=== PATIENT | female | born 1985 | race Caucasian/White ===

== ENCOUNTER 2017-12-02 12:48 | Emergency (ER) | payer OTHER ==
[~2017-12-02] VITALS: Ht 157.5 cm; Wt 56.7 kg
[~2017-12-02 12:48] MED LIST: ALLEGRA30 MG; CARAFATE 1 GM TA1 GM PO; PENICILLIN VK500 M1; PREDNISONE 10 M10 M1 PO; PROAIR HFA8.5 GM PO; ZANTAC 150MG T150 M1 PO; ZPAK PO
[2017-12-02 12:59] VITALS: BP 99/58
[2017-12-02] MEDS ORDERED: OCUFLOX5 ML OTIC (13:21)
[2017-12-02] MEDS ORDERED: KEFLEX500 M1 PO (13:21)
[2017-12-02] MEDS ORDERED: AMOXICILLIN 50500 MG PO (13:28)
== END 2017-12-02 13:30 | disposition home or self-care (01) ==
LOC: M.ERS 12:48
DX: S01.311A Laceration without foreign body of right ear, initial encounter (principal); F32.9 Major depressive disorder, single episode, unspecified; Z88.2 Allergy status to sulfonamides; Z88.8 Allergy status to other drugs, medicaments and biological substances; F17.210 Nicotine dependence, cigarettes, uncomplicated; X58.XXXA Exposure to other specified factors, initial encounter; Y93.89 Activity, other specified; Y92.89 Other specified places as the place of occurrence of the external cause; Y99.8 Other external cause status

== ENCOUNTER 2018-01-19 10:21 | Emergency (ER) | payer OTHER ==
[~2018-01-19] VITALS: Ht 157.5 cm; Wt 54.4 kg
[~2018-01-19 10:21] MED LIST changes: +AMOXICILLIN 50500 MG PO; +KEFLEX500 M1 PO; +OCUFLOX5 ML OTIC
[2018-01-19 10:26] VITALS: BP 109/63
[2018-01-19] MEDS ORDERED: TRAMADOL 50 MG50 MG PO (10:35)
[2018-01-19] MEDS ORDERED: LIDOCAINE VISC100 ML SWISH&SPIT (10:35)
[2018-01-19] MEDS ORDERED: AMOXICILLIN 50500 MG PO (10:35)
== END 2018-01-19 10:48 | disposition home or self-care (01) ==
LOC: M.ERS 10:21
DX: K08.89 Other specified disorders of teeth and supporting structures (principal); F32.9 Major depressive disorder, single episode, unspecified; F17.210 Nicotine dependence, cigarettes, uncomplicated; Z88.2 Allergy status to sulfonamides; Z88.8 Allergy status to other drugs, medicaments and biological substances; Z98.890 Other specified postprocedural states

== ENCOUNTER 2018-06-04 08:22 | Emergency (ER) | payer OTHER, MEDICAID ==
[~2018-06-04] VITALS: Ht 157.5 cm; Wt 56.7 kg
[~2018-06-04 08:22] MED LIST changes: +LIDOCAINE VISC100 ML SWISH&SPIT; +TRAMADOL 50 MG50 MG PO
[2018-06-04] MEDS ORDERED: [UNRECOGNIZED DRUG - OTHER] (08:30)
[2018-06-04] MEDS ORDERED: CLEOCIN HCL150 MG PO ×2 (09:19→09:57)
[2018-06-04 09:22] VITALS: BP 101/67
== END 2018-06-04 09:25 | disposition home or self-care (01) ==
LOC: M.ERS 08:22
DX: K08.89 Other specified disorders of teeth and supporting structures (principal); F17.210 Nicotine dependence, cigarettes, uncomplicated; F32.9 Major depressive disorder, single episode, unspecified; Z88.8 Allergy status to other drugs, medicaments and biological substances; Z88.2 Allergy status to sulfonamides

== ENCOUNTER 2018-06-10 18:44 | Emergency (ER) | payer OTHER, MEDICAID ==
[~2018-06-10] VITALS: Ht 157.5 cm; Wt 56.7 kg
[~2018-06-10 18:44] MED LIST changes: +CLEOCIN HCL150 MG PO; +[UNRECOGNIZED DRUG - OTHER]
[2018-06-10] MEDS ORDERED: MEDROLDOSEPACK PO (19:22)
[2018-06-10] MEDS ORDERED: NORCO 5-325 TA1 EACH PO (19:22)
[2018-06-10] MEDS ORDERED: ROBAXIN 750 MG750 M1 PO (19:22)
[2018-06-10 19:43] VITALS: BP 130/72
== END 2018-06-10 19:44 | disposition home or self-care (01) ==
LOC: M.ERS 18:44
DX: M54.41 Lumbago with sciatica, right side (principal); F32.9 Major depressive disorder, single episode, unspecified; F17.210 Nicotine dependence, cigarettes, uncomplicated; Z88.2 Allergy status to sulfonamides; Z98.890 Other specified postprocedural states; Z88.8 Allergy status to other drugs, medicaments and biological substances

== ENCOUNTER 2018-06-30 10:13 | Emergency (ER) | payer OTHER, MEDICAID ==
[~2018-06-30] VITALS: Ht 157.5 cm; Wt 56.7 kg
[~2018-06-30 10:13] MED LIST changes: +MEDROLDOSEPACK PO; +NORCO 5-325 TA1 EACH PO; +ROBAXIN 750 MG750 M1 PO
[2018-06-30] MEDS ORDERED: IBUPROFEN 600600 M1 PO (10:46)
[2018-06-30] MEDS ORDERED: KEFLEX500 M1 PO (10:46)
[2018-06-30 11:48] VITALS: BP 118/65
== END 2018-06-30 11:48 | disposition home or self-care (01) ==
LOC: M.ERS 10:13
DX: S91.012A Laceration without foreign body, left ankle, initial encounter (principal); W20.8XXA Other cause of strike by thrown, projected or falling object, initial encounter; Y93.89 Activity, other specified; Y92.89 Other specified places as the place of occurrence of the external cause; Y99.8 Other external cause status

== ENCOUNTER 2019-04-08 09:17 | Emergency (ER) | payer MEDICAID ==
[~2019-04-08] VITALS: Ht 157.5 cm; Wt 56.7 kg
[~2019-04-08 09:17] MED LIST changes: +IBUPROFEN 600600 M1 PO
[2019-04-08] MEDS ORDERED: MEDROLDOSEPACK PO (11:38)
[2019-04-08] MEDS ORDERED: NORCO 5-325 TA1 EAC1 PO (11:38)
[2019-04-08] MEDS ORDERED: NAPROSYN500 MG PO (11:38)
[2019-04-08 12:05] VITALS: BP 100/75
== END 2019-04-08 12:05 | disposition home or self-care (01) ==
LOC: M.ERS 09:17
DX: M75.41 Impingement syndrome of right shoulder (principal); M54.2 Cervicalgia; Z88.2 Allergy status to sulfonamides; Z88.8 Allergy status to other drugs, medicaments and biological substances; Z98.51 Tubal ligation status

== ENCOUNTER 2019-07-15 11:44 | Emergency (ER) | payer OTHER, MEDICAID ==
[~2019-07-15] VITALS: Ht 157.5 cm; Wt 56.7 kg
[~2019-07-15 11:44] MED LIST changes: +NAPROSYN500 MG PO; +NORCO 5-325 TA1 EAC1 PO
[2019-07-15] MEDS ORDERED: PREDNISONE10 MG PO (12:30)
[2019-07-15 13:24] VITALS: BP 89/48
== END 2019-07-15 13:25 | disposition home or self-care (01) ==
LOC: M.ERS 11:44
DX: T78.40XA Allergy, unspecified, initial encounter (principal); F17.210 Nicotine dependence, cigarettes, uncomplicated; F43.10 Post-traumatic stress disorder, unspecified; Z88.1 Allergy status to other antibiotic agents; Z88.2 Allergy status to sulfonamides; Z88.8 Allergy status to other drugs, medicaments and biological substances; Z98.51 Tubal ligation status; X58.XXXA Exposure to other specified factors, initial encounter

== ENCOUNTER 2019-11-22 20:12 | Emergency (ER) | payer OTHER, MEDICAID ==
[~2019-11-22] VITALS: Ht 157.5 cm; Wt 54.4 kg
[~2019-11-22 20:12] MED LIST changes: +PREDNISONE10 MG PO
[2019-11-22] MEDS ORDERED: ZOFRAN ODT4 MG PO (22:32)
[2019-11-22] MEDS ORDERED: IBUPROFEN 800800 M1 PO (22:32)
[2019-11-22] MEDS ORDERED: NORCO 5-325 TA1 EAC2 PO ×2 (22:32→22:35)
[2019-11-22 22:56] VITALS: BP 110/70
== END 2019-11-22 22:57 | disposition home or self-care (01) ==
LOC: M.ERS 20:12
DX: S69.92XA Unspecified injury of left wrist, hand and finger(s), initial encounter (principal); F17.210 Nicotine dependence, cigarettes, uncomplicated; Z98.51 Tubal ligation status; Z88.1 Allergy status to other antibiotic agents; Z88.8 Allergy status to other drugs, medicaments and biological substances; Z88.2 Allergy status to sulfonamides; W01.0XXA Fall on same level from slipping, tripping and stumbling without subsequent striking against object, initial encounter; Y93.89 Activity, other specified; Y92.89 Other specified places as the place of occurrence of the external cause; Y99.8 Other external cause status

== ENCOUNTER 2020-06-08 15:28 | Emergency (ER) | payer OTHER, MEDICAID ==
[~2020-06-08] VITALS: Ht 157.5 cm; Wt 55.8 kg
[~2020-06-08 15:28] MED LIST changes: +IBUPROFEN 800800 M1 PO; +NORCO 5-325 TA1 EAC2 PO; +ZOFRAN ODT4 MG PO
[2020-06-08 15:55] LABS: URINE BILIRUBIN NEGATIVE (Negative); URINE BLOOD NEGATIVE (Negative); URINE CLARITY CLEAR; URINE COLOR YELLOW; URINE GLUCOSE-RANDOM TRACE (Negative); URINE KETONES TRACE (Negative); URINE LEUKOCYTES-REFLEX NEGATIVE (Negative); URINE NITRITE-REFLEX NEGATIVE (Negative); URINE PROTEIN NEGATIVE (Negative); URINE SPECIFIC GRAVITY 1.025 (1.005-1.030); URINE UROBILINOGEN 0.2 E.U./dl (0.2-1.0)
[2020-06-08 15:56] LABS: ABSOLUTE BASOPHILS 0.1 thou/uL (0.0-0.2); ABSOLUTE EOSINOPHILS 0.2 thou/uL (0.0-0.7); ABSOLUTE LYMPHOCYTES 3.1 thou/uL (0.8-5.3); ABSOLUTE MONOCYTES 0.6 thou/uL (0.0-1.2); ABSOLUTE NEUTROPHILS 7.4 thou/uL (1.6-8.1); BASOPHILS 1.2 %; EOSINOPHILS 1.6 %; HEMATOCRIT 44.1 % (37.0-47.0); HEMOGLOBIN 14.8 gm/dL (12.0-15.0); LYMPHOCYTES 27.5 %; MCH 30.6 pg (26.0-34.0); MCHC 33.6 g/dL (28.0-37.0); MCV 90.9 fL (80.0-100.0); MONOCYTES 4.9 %; MPV 10.1 fl. (7.2-11.1); NUCLEATED RBCS 0 /100WBC; PLATELET COUNT* 137 thou/uL (150-400); POLYS 64.8 %; RBC 4.85 mil/uL (4.20-5.00); RDW-CV 13.6 % (10.5-14.5); WBC 11.4 thou/uL (4.0-11.0)
[2020-06-08 16:05] LABS: CALCIUM 9.2 mg/dL (8.5-10.1); CREATININE 0.8 mg/dL (0.6-1.3); POTASSIUM 3.7 mmol/L (3.5-5.1)
[2020-06-08 16:09] LABS: ALBUMIN 4.1 g/dL (3.4-5.0); TOTAL BILIRUBIN 0.5 mg/dL (<0.1-1.0); TOTAL PROTEIN 7.3 g/dL (6.4-8.2)
[2020-06-08] MEDS ORDERED: NORCO5 PO (18:45)
[2020-06-08] MEDS ORDERED: IBUPROFEN 800800 M1 PO (18:45)
[2020-06-08] MEDS ORDERED: ZOFRAN ODT4 MG PO (18:45)
[2020-06-08] MEDS ORDERED: CIPRO500 M1 PO (18:45)
[2020-06-08 19:03] VITALS: BP 98/53
--- NOTE | 2020-06-09 14:06 | EKG ---
[place] [address] ELECTROCARDIOGRAM REPORT Name: YUKI BRANCH Room: [facility]#: [id number] Admission: 06/08/20 Attend Phys: Discharge: 06/08/20 Date of : 81 Date of Service: 06/08/20 1603 Report #: [id number] THIS REPORT FOR: //name// [facility] ED Test Date: 2020-06-08 Test Time: 16:03:37 Pat Name: YUKI BRANCH Department: Room: Gender: [employer]: : 1985 Requested By: Yeny Hampton Order Number: [id number] MD: Adriano Alcaraz Measurements Intervals Odin Rate: 71 P: 43 MT: 162 QRS: 80 QRSD: 84 T: 55 QT: 364 QTc: 396 Interpretive Statements Sinus rhythm poor r wave progression Compared to ECG 03/10/2013 20:06:47 No significant changes Electronically Signed On 06-09-2020 14:06:24 CDT by Adriano Alcaraz [email or web address] <ELECTRONICALLY SIGNED> By: Adriano Alcaraz MD, [facility] 06/09/20 1406 1603 1603 Adriano Alcaraz MD, [facility] /EPI
== END 2020-06-08 19:04 | disposition home or self-care (01) ==
LOC: M.ERS 15:28
PROVIDERS: Nurse Practitioner Family
DX: R10.11 Right upper quadrant pain (principal); R10.31 Right lower quadrant pain; R11.2 Nausea with vomiting, unspecified; F17.210 Nicotine dependence, cigarettes, uncomplicated; Z88.1 Allergy status to other antibiotic agents; Z88.2 Allergy status to sulfonamides; Z88.8 Allergy status to other drugs, medicaments and biological substances; Z98.51 Tubal ligation status

== ENCOUNTER 2020-06-16 19:06 | Emergency (ER) | payer OTHER, MEDICAID ==
[~2020-06-16] VITALS: Ht 157.5 cm; Wt 55.8 kg
[~2020-06-16 19:06] MED LIST changes: +CIPRO500 M1 PO; +NORCO5 PO
[2020-06-16 23:13] VITALS: BP 94/65
== END 2020-06-16 23:14 | disposition home or self-care (01) ==
LOC: M.ERS 19:06
DX: S63.591A Other specified sprain of right wrist, initial encounter (principal); S43.491A Other sprain of right shoulder joint, initial encounter; F17.210 Nicotine dependence, cigarettes, uncomplicated; Z88.1 Allergy status to other antibiotic agents; Z88.2 Allergy status to sulfonamides; Z91.018 Allergy to other foods; V86.99XA Unspecified occupant of other special all-terrain or other off-road motor vehicle injured in nontraffic accident, initial encounter; Y93.89 Activity, other specified; Y92.89 Other specified places as the place of occurrence of the external cause; Y99.8 Other external cause status